=== PATIENT | male | born 2000 | race Caucasian/White ===

== ENCOUNTER 2020-04-10 02:20 | Emergency (ER) | payer SELFPAY ==
[~2020-04-10] VITALS: Ht 165.1 cm; Wt 68.0 kg
[2020-04-10 02:23] VITALS: BP 144/79
== END 2020-04-10 02:37 ==
LOC: ER 02:20
DX: T14.8XXA Other injury of unspecified body region, initial encounter (principal); X58.XXXA Exposure to other specified factors, initial encounter; Y93.89 Activity, other specified; Y92.89 Other specified places as the place of occurrence of the external cause; Y99.8 Other external cause status